=== PATIENT | male | born 1960 | race Caucasian/White ===

== ENCOUNTER → 2016-12-12 | Outpatient (CLI) | payer OTHER ==
[~2016-12-12] MED LIST: ATOR10TA82 PO; CBD PO; TURM1CAP2 PO
[2016-12-12 09:41] LABS: BASO % 0.7 %; BASO ABS # 0.03 K/uL (0-0.2); COMPLETE YES; EOS % 3.5 %; HEMATOCRIT 45.8 % (42-52); IG% 0.2 %; LYMPH ABS # 1.56 K/uL (1.2-3.4); MEAN CELL VOLUME 86.6 fL (80-100); MEAN CORPUSCULAR HEMOGLOBIN 30.6 pg (25-34); MEAN CORPUSCULAR HGB CONC 35.4 g/dl (32-36); MEAN PLATELET VOLUME 9.7 fL (7.4-10.4); MONO % 9.6 %; PLATELET COUNT 199 K/uL (130-400); RED BLOOD COUNT 5.29 M/uL (4.7-6.1); WHITE BLOOD COUNT 4.59 K/uL (4.8-10.8)
[2016-12-12 09:51] LABS: URINE APPEARANCE CLEAR (CLEAR); URINE BILIRUBIN NEG (NEG); URINE COLOR YELLOW; URINE EPITHELIAL CELL AUTO 0-5 /lpf (0-5); URINE NITRITE NEG (NEG); URINE SPECIFIC GRAVITY 1.019 (1.000-1.030); UROBILINOGEN NEG (NEG); ZZUR CULT IF INDIC CLEAN CATCH NO
[2016-12-12 10:01] LABS: MANUAL MICROSCOPIC REQUIRED? NO; REVIEW REQ? NO
[2016-12-12 10:43] LABS: BLOOD UREA NITROGEN 15 mg/dl (7-18); BUN/CREATININE RATIO 11.3 (10-20); CALCIUM 8.4 mg/dl (8.5-10.1); CARBON DIOXIDE 25 mmol/L (21-32); CHLORIDE 109 mmol/L (98-107); CHOLESTEROL 122 mg/dl (0-200); GLUCOSE 86 mg/dl (70-99); SODIUM 142 mmol/L (136-145)
[2016-12-12 10:48] LABS: CHOLESTEROL/HDL RATIO 2.7; HDL CHOLESTEROL 45 mg/dl; LDL CHOLESTEROL CALCULATED 64 mg/dl; PROSTATE SPECIFIC ANTIGEN 0.933 ng/ml (0.000-4.000); TRIGLYCERIDES 66 mg/dl (0-150); VERY LOW DENSITY LIPOPROT CALC 13 mg/dl
== END | disposition home or self-care (01) ==
LOC: C.LAB 07:17
PROVIDERS: ATTEND Internal Medicine
DX: Z12.5 Encounter for screening for malignant neoplasm of prostate (principal); R89.9 Unspecified abnormal finding in specimens from other organs, systems and tissues; E78.5 Hyperlipidemia, unspecified; Z13.6 Encounter for screening for cardiovascular disorders

== ENCOUNTER 2017-01-10 08:01 | Emergency (ER) | payer OTHER ==
[~2017-01-10] VITALS: Ht 177.8 cm; Wt 111.1 kg
[2017-01-10 08:04] VITALS: TEMP 36.7; Ht 177.8 cm; Wt 111.1 kg
[2017-01-10] MEDS ORDERED: ATOR10TA82 PO (08:39)
--- NOTE | 2017-01-10 08:59 | DIAGNOSTIC IMAGING REPORT ---
RIGHT KNEE 3 VIEWS CLINICAL HISTORY: Acute on chronic right knee pain. FINDINGS: AP, crosstable lateral, and sunrise views of the right knee are compared to study dated 10/30/2013. The skeletal structures are well mineralized. No fracture is seen. There is mild to moderate tricompartmental degenerative joint space narrowing which is greatest at the patellofemoral articulation. There are large patellar enthesophytes as well as large marginal osteophytes. There is degenerative beaking of the tibial spine. A calcified fabella is incidentally noted. There is a moderate joint effusion. Prepatellar soft tissue swelling is noted. IMPRESSION: 1. Joint effusion and soft tissue edema. No fracture is seen. 2. Degenerative change as above. Electronically signed by: Marco Antonio Ramos M.D. 01/10/2017 8:58 AM Dictated Date/Time: 01/10/2017 8:56 AM
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
[2017-01-10 09:32] VITALS: BP 132/68; PULSE 82; O2SAT 98
[2017-01-17] MEDS ORDERED: TURM1CAP2 PO (13:20)
[2017-01-17] MEDS ORDERED: CBD PO (13:20)
== END 2017-01-10 09:34 | disposition home or self-care (01) ==
LOC: C.EDB 08:02 → C.EDA 09:34
DX: S89.91XA Unspecified injury of right lower leg, initial encounter (principal); X50.1XXA Overexertion from prolonged static or awkward postures, initial encounter; Y92.312 Tennis court as the place of occurrence of the external cause; Y93.73 Activity, racquet and hand sports; Z79.899 Other long term (current) drug therapy

== ENCOUNTER → 2017-01-27 | Day surgery (SDC) | payer OTHER ==
[2017-01-17 13:20] VITALS: BMI 34.0
[~2017-01-27] VITALS: Ht 177.8 cm; Wt 109.1 kg
[~2017-01-27] MED LIST changes: +PROPOFOL IV EMULSION 10 MG/ML 20 ML VIAL IV ONE; +SODIUM CHLORIDE 0.9% 500ML 500 ML IV ONE
[2017-01-27 09:52] VITALS: Ht 177.8 cm; Wt 109.1 kg
--- NOTE | 2017-01-27 10:03 | Endo History and Physical ---
History & Physical Date of Service: Jan 27, 2017. Chief Complaint: screening Referring Physician: Dr. Pendleton History of Present Illness 56 yo CM who presents for screening colonoscopy. Past Surgical History Hx Cardiac Surgery: No Hx Internal Defibrillator: No Hx Pacemaker: No Hx Abdominal Surgery: No Hx of Implantable Prosthesis: No Hx Post-Op Nausea and Vomiting: No Hx Cancer Surgery: No Hx Thoracic Surgery: No Hx Orthopedic: Yes (RT MENISCUS REPAIR, LT MENSISCUS, RT RCR) Hx Urinary Tract Surgery: No Family History None Social History Smoking Status: Never Smoker Hx Substance Use: No Hx Alcohol Use: No Allergies Coded Allergies: Ketorolac Tromethamine (Unverified Allergy, Unknown, STOMACH PAINS, 01/27/17 ) Current Medications Reported Home Medications Medications Dose Route/Sig Max Daily Dose Days Date Category [Cbd] 1 Tab PO BID 01/17/17 Reported Turmeric (Turmeric (Curcuma Longa)) 450 Mg Cap 1 Tab PO NOON 01/17/17 Reported Lipitor (Atorvastatin Calcium) 10 Mg Tab 1 Tab PO HS 01/10/17 Reported Vital Signs Weight (Kilograms): 109.09 Height (Feet): 5 Height (Inches): 10 Date Time Temp Pulse Resp B/P (MAP) Pulse Ox O2 Delivery O2 Flow Rate FiO2 01/27/17 09:58 36.7 62 20 126/76 (93) 99 Room Air Physical Exam General Appearance: WD/WN, no apparent distress Respiratory/Chest: Auscultation: breath sounds normal Cardiovascular: Heart Auscultation: RRR Abdomen: Bowel Sounds: normal Inspection & Palpation: soft, non-distended, no tenderness, guarding & rebound Assessment and Plan Assessment: 56 yo CM who presents for screening colonoscopy. Plan: Proceed with colonoscopy.
--- NOTE | 2017-01-27 10:38 | Discharge Instructions ---
Endoscopy Patient Instructions Date / Procedure(s) Performed Jan 27, 2017. Colonoscopy Allergy Information Coded Allergies: Ketorolac Tromethamine (Unverified Allergy, Unknown, STOMACH PAINS, 01/27/17 ) Discharge Date / Findings Jan 27, 2017. Prominent IC valve s/p biopsies Ascending colon polyp Diverticulosis Internal hemorrhoids Provider Instructions Activity Restrictions - No exercising or heavy lifting for 24 hours. - Do not drink alcohol the day of the procedure. - Do not drive a car or operate machinery until the day after the procedure. - Do not make any important decisions or sign important papers in 24 hours after the procedure. Following Day: - Return to full activity which may include returning to work/school. Diet Start your diet with liquids and light foods (jello, soup, juice, toast). Then eat your usual diet if not nauseated. Treatment For Common After Affects For mild abdominal pain, bloating, or excessive gas: - Rest - Eat lightly - Lie on right side Follow-Up Information Follow-up with Dr. Pendleton as scheduled Anesthesia Information What You Should Know You have had a procedure that required some medicine to reduce anxiety and discomfort. This treatment is called moderate sedation. After receiving the treatment, you may be sleepy, but you will be able to breathe on your own. The effects of the treatment may last for several hours. Follow these instructions along with Activity/Diet recommendations noted above: * Do NOT do anything where dizziness or clumsiness would be dangerous. * Rest quietly at home today, then you can be up and about tomorrow. * Have a responsible person stay with you the rest of today. * You may have had an I.V. today. If so, you may take the dressing off later today. Recommendations Call your doctor if: * Trouble breathing * Continuous vomiting for more than 24 hours * Temperature above 101 degrees * Severe abdominal pain or bloating * Pain not relieved by pain medicine ordered * There is increased drainage or redness from any incision * A large amount of rectal bleeding greater than 2-3 tablespoons. (If you had a polyp/s removed or have hemorrhoids, a small amount of blood - from the rectum is to be expected.) * You have any unanswered questions or concerns. IN THE EVENT OF A SERIOUS EMERGENCY, GO TO THE NEAREST EMERGENCY ROOM Your discharge instructions were prepared by provider Migue Stewart. Patient Instructions Signature Page Luis Atkins Patient (or Guardian) Signature/Date: I have read and understand the instructions given to me by my caregivers. Caregiver/RN/Doctor Signature/Date: The above-named patient and/or guardian has received patient instructions on this date. + Original Patient Signature Page (only) stays with chart. Please make copy for patient.
--- NOTE | 2017-01-27 10:47 | GI REPORT ---
Procedure Date: 01/27/2017 10:11 AM Procedure: Colonoscopy Indications: Screening for colorectal malignant neoplasm Medicines: Monitored Anesthesia Care Complications: No immediate complications. Estimated Blood Loss: Estimated blood loss: none. Procedure: Pre-Anesthesia Assessment: - Prior to the procedure, a History and Physical was performed, and patient medications and allergies were reviewed. The patient's tolerance of previous anesthesia was also reviewed. The risks and benefits of the procedure and the sedation options and risks were discussed with the patient. All questions were answered, and informed consent was obtained. Prior Anticoagulants: The patient has taken no previous anticoagulant or antiplatelet agents. ASA Grade Assessment: II - A patient with mild systemic disease. After reviewing the risks and benefits, the patient was deemed in satisfactory condition to undergo the procedure. After I obtained informed consent, the scope was passed under direct vision. Throughout the procedure, the patient's blood pressure, pulse, and oxygen saturations were monitored continuously. The Scope was introduced through the anus and advanced to the terminal ileum. The colonoscopy was performed without difficulty. The patient tolerated the procedure well. The quality of the bowel preparation was good. The terminal ileum, ileocecal valve, appendiceal orifice, and rectum were photographed. Findings: Localized mild inflammation characterized by congestion (edema) was found at the ileocecal valve. Biopsies were taken with a cold forceps for histology. A 4 mm polyp was found in the ascending colon. The polyp was sessile. The polyp was removed with a cold snare. Resection and retrieval were complete. Multiple small-mouthed diverticula were found in the sigmoid colon. Non-bleeding internal hemorrhoids were found during retroflexion. The hemorrhoids were small. Impression: - Localized mild inflammation was found at the ileocecal valve. Biopsied. - One 4 mm polyp in the ascending colon, removed with a cold snare. Resected and retrieved. - Diverticulosis in the sigmoid colon. - Non-bleeding internal hemorrhoids. Recommendation: - Resume previous diet. - Continue present medications. - Repeat colonoscopy for surveillance based on pathology results. - Return to primary care physician as previously scheduled. Migue Stewart DO 01/27/2017 10:47:00 AM This report has been signed electronically. Note Initiated On: 01/27/2017 10:11 AM I attest to the content of the Intraoperative Record and orders documented therein, exceptions below
[2017-01-27 10:59] VITALS: BP 131/80; PULSE 70; O2SAT 97
--- NOTE | 2017-01-27 11:21 | Anesthesiology Progress Note ---
Anesthesia Post Op Note Date & Time Jan 27, 2017 at 11:21 Vital Signs Pain Intensity: 0 Vital Signs Past 12 Hours Date Time Temp Pulse Resp B/P (MAP) Pulse Ox O2 Delivery O2 Flow Rate FiO2 01/27/17 10:59 70 20 131/80 (97) 97 Room Air 01/27/17 10:45 69 20 129/70 (89) 97 Room Air 01/27/17 10:34 66 20 110/75 (87) 95 Room Air 01/27/17 09:58 36.7 62 20 126/76 (93) 99 Room Air Notes Mental Status: alert / awake / arousable, participated in evaluation Pt Amnestic to Procedure: Yes Nausea / Vomiting: adequately controlled Pain: adequately controlled Airway Patency, RR, SpO2: stable & adequate BP & HR: stable & adequate Hydration State: stable & adequate Anesthetic Complications: no major complications apparent
== END | disposition home or self-care (01) ==
LOC: C.GI 09:37
PROVIDERS: ATTEND Internal Medicine
DX: Z12.11 Encounter for screening for malignant neoplasm of colon (principal); D12.2 Benign neoplasm of ascending colon; K57.30 Diverticulosis of large intestine without perforation or abscess without bleeding; K64.8 Other hemorrhoids

== ENCOUNTER → 2017-08-03 | Outpatient (CLI) | payer OTHER ==
[~2017-08-03] MED LIST changes: -PROPOFOL IV EMULSION 10 MG/ML 20 ML VIAL IV ONE; -SODIUM CHLORIDE 0.9% 500ML 500 ML IV ONE
--- NOTE | 2017-08-03 18:15 | DIAGNOSTIC IMAGING REPORT ---
C-SPINE ROUTINE 4 OR 5 VIEWS HISTORY: 57 years-old Male M54.2 Neck pain acute neck pain without reported trauma COMPARISON: None available TECHNIQUE: 5 views of the cervical spine FINDINGS: The seventh vertebral segment is partially obscured by soft tissue. No acute fracture or subluxation identified. Moderate intervertebral disc space narrowing at C5-C6. Mild multilevel endplate spurring and facet arthrosis. Degenerative changes cause mild right-sided bony foraminal narrowing at C3-C4, C4-C5 and C5-C6. No significant bony foraminal narrowing seen on the left. Lung apices appear clear. No prevertebral soft tissue swelling. IMPRESSION: 1. No acute fracture or subluxation. 2. Degenerative changes as above include moderate intervertebral disc space narrowing at C5-C6. The above report was generated using voice recognition software. It may contain grammatical, syntax or spelling errors. Electronically signed by: Ace Monroy M.D. 08/03/2017 6:14 PM Dictated Date/Time: 08/03/2017 6:12 PM
--- NOTE | 2017-08-03 18:19 | DIAGNOSTIC IMAGING REPORT ---
LUMBAR SPINE 5 VIEWS HISTORY: M54.5 Low back painM54.2 Neck pain COMPARISON: None. FINDINGS: Minimal levoscoliosis which may be positional. The sacrum appears intact. Mild to moderate facet degenerative changes within the lower lumbar spine. No subluxation. Mild disc space narrowing at L3-L4 and L4-L5. Moderate to space narrowing at L5-S1. Mild superior endplate compression at L2 centrally. This is likely old. No acute fractures identified within the lumbar spine. IMPRESSION: 1. No acute fractures or subluxation within the lumbar spine. 2. Mild superior endplate central compression at L2 which is likely old. 3. Mild to moderate degenerative changes as described above. Electronically signed by: Rob Barroso M.D. 08/03/2017 6:17 PM Dictated Date/Time: 08/03/2017 6:15 PM
== END | disposition home or self-care (01) ==
LOC: C.RAD 17:13
PROVIDERS: ATTEND Internal Medicine
DX: M54.5 Low back pain (principal); M54.2 Cervicalgia

== ENCOUNTER 2024-07-23 05:05 | Observation (INO) ==
--- NOTE | 2024-06-14 16:01 | PAT Medication Instructions ---
Medication Instructions Date of Service June 14, 2024 Home Medications Medication Instructions Recorded cyclobenzaprine 10 mg tablet 10 mg PO TID PRN muscle spasm #60 05/03/23 tabs gabapentin 100 mg capsule 100 - 300 mg (1 - 3 x 100 mg) PO 03/26/24 TID PRN pain #90 caps atorvastatin 10 mg tablet 10 mg PO HS #90 tabs 05/06/24 multivitamin with minerals-folic acid 200 mcg chewable tablet (Multivitamin Gummies) 2 tab PO QAM mushroom supplement 2 tab PO DAILY cyclobenzaprine 10 mg tablet 10 mg PO TID PRN magnesium glycinate 100 mg (as glycinate) tablet 100 mg PO DAILY gabapentin 100 mg capsule 100 - 300 mg (1 - 3 x 100 mg) PO TID PRN atorvastatin 10 mg tablet 10 mg PO HS Creatine Supplement 2.5 g PO DAILY apixaban 5 mg tablet (Eliquis) 5 mg PO BID ASK your prescriber and surgeon apixaban 5 mg tablet (Eliquis) 5 mg PO BID(in order for spinal or epidural anesthesia, Eliquis needs to be stopped 72 hours/3 days before surgery. Please check if okay with doctor that prescribes this to you) STOP taking 2 weeks before surgery (or as soon as possible if surgery is within 2 weeks) mushroom supplement 2 tab PO DAILY Creatine Supplement 2.5 g PO DAILY DO NOT take the morning of surgery multivitamin with minerals-folic acid 200 mcg chewable tablet (Multivitamin Gummies) 2 tab PO QAM magnesium glycinate 100 mg (as glycinate) tablet 100 mg PO DAILY Take morning of surgery With a small sip of water, OTHERWISE NOTHING TO EAT OR DRINK AFTER MIDNIGHT: cyclobenzaprine 10 mg tablet 10 mg PO TID PRN(if needed) gabapentin 100 mg capsule 100 - 300 mg (1 - 3 x 100 mg) PO TID PRN(if needed) Take evening before surgery cyclobenzaprine 10 mg tablet 10 mg PO TID PRN(if needed) gabapentin 100 mg capsule 100 - 300 mg (1 - 3 x 100 mg) PO TID PRN(if needed) atorvastatin 10 mg tablet 10 mg PO HS Other Notes If you have any questions please call us at [phone] or [phone] or [phone] or [phone]
--- NOTE | 2024-06-24 10:18 | Anesthesiology Consultation ---
Date of Service June 24, 2024 Assessment & Plan (1) Encounter for pre-operative examination: Plan - Outpatient joint assessment: Patient is currently scheduled for inpatient pathway. If re-evaluated and patient/surgeon requests outpatient pathway, patient is not advised candidate for outpatient joint program from anesthesia standpoint. Chart Review Chart Review: Acceptable Risk for Surgery and Patient seen in Pre Admission Testing Teaching & Discussion Pre-Anesthesia Teaching/Discussion Notes: Instructed NPO after midnight before surgery, except medications with 15 cc of water. Medication instructions provided according to the PAT guidelines. History Surgery Operation Date: 07/23/24 10:40 Proposed Procedures p Left Total Hip Arthroplasty - Francis Goins MD Height/Weight Height: 5 ft 10 in Weight: 114.4 kg Allergies Allergy/AdvReac Type Severity Reaction Status Date / Time ketorolac AdvReac Intermediate Stomach Verified 06/14/24 07:28 Pains Medications Home Medications Medication Instructions Recorded Confirmed Last Taken multivitamin with minerals-folic 2 tab PO QAM 06/02/22 06/14/24 06/07/22 acid 200 mcg chewable tablet (Multivitamin Gummies) mushroom supplement 2 tab PO DAILY 11/29/22 06/14/24 Unknown cyclobenzaprine 10 mg tablet 10 mg PO TID PRN muscle spasm #60 05/03/23 06/14/24 Unknown tabs magnesium glycinate 100 mg (as 100 mg PO DAILY 08/10/23 06/14/24 Unknown glycinate) tablet gabapentin 100 mg capsule 100 - 300 mg (1 - 3 x 100 mg) PO 03/26/24 06/14/24 Unknown TID PRN pain #90 caps atorvastatin 10 mg tablet 10 mg PO HS #90 tabs 05/06/24 06/14/24 Unknown Creatine Supplement 2.5 g PO DAILY 06/14/24 06/14/24 Unknown apixaban 5 mg tablet (Eliquis) 5 mg PO BID 06/14/24 06/14/24 Unknown Past Medical History Medical History Anticoagulant long-term use Eliquis Diverticular disease found on colonoscopy - denies history of diverticulitis Factor V Leiden Dr Zaragoza/ Clinic Herniated intervertebral disc multiple lumbar History of DVT (deep vein thrombosis) LLE 2 year ago; dx Factor V; Eliquis Hyperlipidemia Lumbar back pain Osteoarthritis Superficial thrombosis of right lower extremity hx - on eliquis Patient denies h/o stroke, seizures, heart attack, heart failure, DM, HTN, or blood transfusions. Exercise / Class Metabolic Activity II 4-5 Yardwork/Stairs/Walk up hill (denies chest discomfort or shortness of breath with one flight of stairs) Past Family History Family History Father Heart disease Myocardial infarction Coronary heart disease Mother Arthritis Dementia Hypertension Macular degeneration Obesity Other No family history of adverse response to anesthesia Denies family history of Ovarian cancer Prostate cancer Breast cancer Colorectal cancer Past Surgical History Surgical History History of arthroscopy of left knee meniscus repair History of arthroscopy of right knee meniscus repair History of carpal tunnel surgery & Ulnar nerve - Right History of colonoscopy (2020) History of repair of rotator cuff Right History of wisdom tooth extraction Past Anesthesia History No Hx of Anesthesia Complications and No Family Hx of Anesthesia Complications History of PONV No Hx of PONV and No Hx of Motion Sickness Social History Smoking Status: Never smoker Do You Dip or Chew Tobacco: No Hx Alcohol Use: No Hx Substance Use: No substance use type: does not use Review of Systems Snoring, denies witnessed apneas. Patient denies chest pain, shortness of breath, dyspnea on exertion, reflux, fever, chills, cough, wheezing, or palpitations. Physical Exam Vital Signs Vitals BP 121/80 P 70 TEMP 97.7 SP02 97% on RA RESP 18 Physical Patient resting comfortably in chair in no acute distress, alert and oriented, responding appropriately throughout visit Full cervical extension range of motion without pain TMD 3.5 finger breadths Mallampati Score 2 Dentition: front upper caps, denies broken or loose teeth, crowns, implants or bridges Lungs: normal respiratory effort. Good air movement, clear throughout to auscultation, no adventitious breath sounds Cardiac: regular rate and rhythm, no murmurs noted Carotid arteries: negative bruit bilat Lab Results Anesthesia Preop Results Results Anesthesia Widget: WBC 5.42 K/ul (4.8-10.8) 06/24/24 Hgb 15.8 g/dl (14.0-18.0) 06/24/24 Hct 44.6 % (42.0-52.0) 06/24/24 Plt 216 K/uL (130-400) 06/24/24 Na 139 mmol/L (136-145) 06/24/24 K 4.2 mmol/L (3.5-5.1) 06/24/24 Cl 107 mmol/L (98-107) 06/24/24 CO2 24 mmol/L (21-32) 06/24/24 BUN 19 mg/dl (6-23) 06/24/24 Creat 1.15 mg/dl (0.6-1.4) 06/24/24 Glucose Level 100 mg/dl (70-99(Fasting)) H 06/24/24 PT 10.9 Seconds (9.0-12.0) 06/24/24 PTT 29 Seconds (21-31) 06/24/24 INR 1.0 (0.9-1.1) 06/24/24 Blood Type B Positive 06/24/24 Antibody Screen NEGATIVE 06/24/24 Testing Electrocardiogram Date: 06/24/24 Sinus rhythm with 1st degree AV block, rate 63 bpm Left anterior fascicular block Chest X-Ray Date: 06/24/24 No acute cardiopulmonary findings.
--- NOTE | 2024-07-15 20:00 | History & Physical Report ---
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 At tempora response to injection. This hip. Seems to be bothering and limiting his activities and ability to maintain an active lifestyle. He would like to have his hip fixed. Plan: We are going to take him to the operating room and do a left total hip replacement. The risks Mente this procedure were explained to the patient and include but not limited to a DVT, PE, , infection, neurovascular injury, leg length inequality, fracture, excetra. The patient understands and desires to proceed. He will hold his anticoagulation 3 days preop and we will start him in 24 hours postop and a prophylactic dose for a day or 2. This certainly does put him at increased risk for thrombosis but we will do the best we can to avoid that and manage that. He is planning on stay in the hospital overnight. He is open to be discharged to home postoperative day 1. He does live in [facility]. (2) Bilateral primary osteoarthritis of knee: (3) Hyperlipidemia: (4) History of DVT (deep vein thrombosis): (5) Factor V Leiden: History of Present Illness Chief Complaint: . Left hip and leg pain. Primary Care Provider: Miguel Pendleton MD . The patient is a 64-year-old gentleman who I been following for years for some knee problems. These has a history of bilateral knee arthroscopy done by Dr. Acuña in the past. We have been treating him conservatively over the years. 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 Over the past year or 2 weeks developed increased pain discomfort in his left hip groin and thigh area. He did have an injection intra-articularly by Dr. Hernandez which gave him about a month of relief. Pains come back. Got groin and thigh pain. Occasionally has trouble sleeping. He would like to have his hip fixed. 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 Allergies Allergy/AdvReac Type Severity Reaction Status Date / Time ketorolac AdvReac Intermediate Stomach Verified 06/14/24 07:28 Pains Home Medications Medication Instructions Recorded Confirmed Type multivitamin with minerals-folic 2 tab PO QAM 06/02/22 06/14/24 History acid 200 mcg chewable tablet (Multivitamin Gummies) mushroom supplement 2 tab PO DAILY 11/29/22 06/14/24 History cyclobenzaprine 10 mg tablet 10 mg PO TID PRN muscle spasm #60 05/03/23 06/14/24 Rx tabs magnesium glycinate 100 mg (as 100 mg PO DAILY 08/10/23 06/14/24 History glycinate) tablet gabapentin 100 mg capsule 100 - 300 mg (1 - 3 x 100 mg) PO 03/26/24 06/14/24 Rx TID PRN pain #90 caps atorvastatin 10 mg tablet 10 mg PO HS #90 tabs 05/06/24 06/14/24 Rx Creatine Supplement 2.5 g PO DAILY 06/14/24 06/14/24 History apixaban 5 mg tablet (Eliquis) 5 mg PO BID 06/14/24 06/14/24 History Past Med/Surg History Problem List Arthritis of left hip Achilles tendonosis Chronic anticoagulation Gross hematuria 12/28/22 Superficial thrombosis of left lower extremity 07/06/22 Encounter for pre-operative examination Cubital tunnel syndrome on right Carpal tunnel syndrome of right wrist Lumbar disc disease Lumbar compression fracture L2, L3, L4 DDD (degenerative disc disease), cervical Right hand paresthesia 05/06/21 Cervical pain Bilateral primary osteoarthritis of knee DVT (deep venous thrombosis) Left soleus 06/2022 Right calf pain 04/06/20 Varicose veins of right lower extremity Tubular adenoma of colon (Acute) Plantar fasciitis (Acute) Low back pain (Acute) Leukopenia (Acute) 01/09/19 Internal hemorrhoids (Acute) Hyperlipidemia (Chronic) Diverticulosis (Acute) Medical History Hyperlipidemia Anticoagulant long-term use Eliquis Diverticular disease found on colonoscopy - denies history of diverticulitis Lumbar back pain Superficial thrombosis of right lower extremity hx - on eliquis Osteoarthritis Herniated intervertebral disc multiple lumbar History of DVT (deep vein thrombosis) LLE 2 year ago; dx Factor V; Eliquis Factor V Leiden Dr Zaragoza/ Clinic Surgical History History of carpal tunnel surgery & Ulnar nerve - Right History of arthroscopy of left knee meniscus repair History of arthroscopy of right knee meniscus repair History of wisdom tooth extraction History of colonoscopy (2020) History of repair of rotator cuff Right Family History Father Heart disease Myocardial infarction Coronary heart disease Mother Arthritis Dementia Hypertension Macular degeneration Obesity Other No family history of adverse response to anesthesia Denies family history of Ovarian cancer Prostate cancer Breast cancer Colorectal cancer Social History Smoking Status: Never smoker Second Hand Exposure: No; Do You Dip or Chew Tobacco: No; Hx Alcohol Use: No Hx Substance Use: No Preferred Language: [place] Leonean Communication Ability: Effective Visual Impairment: Limited Hearing Ability: Normal 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 Physical Exam . Physical examination was a pleasant middle-age male. He looks to be in pretty good health. Examination of the left hip and leg reveal patient walks with slightly antalgic gait. He does limp on the left side. Leg lengths appear pretty equal. He is got stiffness and pain with hip motion. He can internally rotate to neutral. Negative straight leg raise. Constitutional WD/WN, vitals as above Neck trachea midline, no thyromegaly Respiratory normal respiratory effort, lungs clear to auscultation Cardiovascular RRR, no murmur, no edema Gastrointestinal (Abdomen) normal bowel sounds, soft, nontender, no hepatosplenomegaly Results & Data Results & Data Laboratory Results . Diagnostic Findings . X-rays of the left hip were reviewed. It shows fairly advanced left hip arthritis. He is got near complete loss of the superior joint space. He is gotten a little bit of flattening of the femoral head with cam type impingement. He is got cystic changes on both sides of the joint in the weightbearing part of the hip. PG Care Time/CCT Total # of Minutes Spent Total Time Spent with Patient: Total time spent is greater than 50% in coordination of care (as documented) at patient's floor/unit and/or counseling patient: Coding Level of Care Code None Diagnoses Arthritis of left hip M16.12 Bilateral primary osteoarthritis of knee M17.0 Hyperlipidemia E78.5 History of DVT (deep vein thrombosis) Z86.718 Factor V Leiden D68.51
[2024-07-23] MEDS: METOCLOPRAMIDE HCL 10 MG TABLET PO SCH (05:58)
[2024-07-23] MEDS: FAMOTIDINE 20 MG TAB PO SCH (05:58)
[2024-07-23] MEDS: CeleBREX 200 MG CAP PO SCH (05:58)
[2024-07-23] MEDS: ACETAMINOPHEN 500 MG TAB PO SCH ×2 (05:58→14:05)
[2024-07-23] MEDS: LACTATED RINGER'S 1,000 ML IV SCH (05:59)
[2024-07-23] MEDS ORDERED: LR 60ML/HR IV SCH (06:00)
[2024-07-23] MEDS ORDERED: LR 500ML BOLUS, THEN 15ML/HR IV SCH (06:00)
[2024-07-23] MEDS ORDERED: PROPOFOL IV EMULSION 10 MG/ML 20 ML VIAL IV ONE (06:09)
[2024-07-23] MEDS ORDERED: LIDOCAINE 2% 2 ML VIAL/AMP(20MG/ML) INFIL ONE (06:11)
[2024-07-23] MEDS ORDERED: fentaNYL citrate PF 100 MCG/2 ML VIAL ONE (06:15)
[2024-07-23] MEDS ORDERED: MIDAZOLAM HCL 1 MG/ML 2ML VIAL ONE ×2 (06:15)
[2024-07-23] MEDS ORDERED: ROPIVACAINE 0.5% 5 MG/ML 30 ML VIAL ONE (06:21)
[2024-07-23] MEDS ORDERED: NALBUPHINE HCL INJ 10 MG/ML AMP IV PRN (06:40)
[2024-07-23] MEDS ORDERED: NALOXONE HCL 0.4 MG/1 ML VIAL/CARP IV PRN ×2 (06:40→10:28)
[2024-07-23] MEDS ORDERED: ePHEDrine sulfate 50 MG/ML AMP IV PRN (06:40)
[2024-07-23] MEDS ORDERED: MoRPHine SULFATE 2 MG/ML CARP IV PRN (06:40)
[2024-07-23] MEDS ORDERED: NALOXONE HCL 0.08 MG in SYRINGE 1.8 ML IV PRN (06:40)
[2024-07-23] MEDS ORDERED: NALOXONE HCL 1 MG in SODIUM CHLORIDE 0.9% 1,000 ML IV PRN (06:40)
[2024-07-23] MEDS ORDERED: HYDROmorphone INJ 0.5 MG/0.5 ML SYR IV PRN ×2 (06:40→10:28)
[2024-07-23] MEDS ORDERED: MoRPHine SULFATE PF 1 MG/ML 10 ML AMP/VIAL ONE (06:41)
[2024-07-23] MEDS: TRANEXAMIC ACID 1,000 MG **IV Pre-op IV SCH (06:43)
[2024-07-23] MEDS ORDERED: NO NARCOTICS OR SEDATIVES SCH (06:45)
[2024-07-23] MEDS ORDERED: DC INTRASPINAL MORPHINE SCH (06:45)
--- NOTE | 2024-07-23 06:50 | History & Physical Bridge Note ---
Date of Service July 23, 2024 History & Physical Bridge Note I have examined the patient, reviewed the History & Physical and in the interval since the performance of the History & Physical I have noted the following changes of clinical significance: no changes noted
[2024-07-23] MEDS: ceFAZolin 2000MG 2,000 MG/15 ML SYR IV SCH ×2 (06:58→14:05)
[2024-07-23] MEDS ORDERED: PHENYLEPHRINE 100MCG/ML 5ML SYR ONE (07:13)
[2024-07-23] MEDS ORDERED: ePHEDrine sulfate 50 MG/5 ML SYR ONE (07:29)
[2024-07-23] MEDS: BUPIVACAINE/EPINEPHRINE 0.5% MPF 1:200,000 30 ML VIAL ONE (07:36)
[2024-07-23] MEDS ORDERED: PHENYLEPHRINE HCL 10 MG/ML VIAL ONE (08:11)
--- NOTE | 2024-07-23 08:35 | Operative Report ---
PG Post Operative Report Pre & Post Diagnosis Operation Date: 07/23/24 07:00 Pre-Op Diagnosis: Left Hip Degenerative Joint Disease Post-Op Diagnosis: Left Hip Degenerative Joint Disease I identified the patient and participated in the time-out.: Yes Procedure Operation Date: 07/23/24 07:00 Actual Procedures p Left Total Hip Arthroplasty, Uncemented(Left) - Francis Goins MD Surgeon Francis Goins MD Visitor Information Assistant Shaheen Ch PA-C Estimated Blood Loss 200 Findings Consistent with Post-Op Diagnosis Specimens Left femoral head sent for pathology. Anesthesia Type Spinal MAC Complications none Disposition Accompanied Patient To Recovery: No Indications The patient is a 64-year-old very active gentleman whose had a several year history of increasing left hip pain discomfort to gotten significant worse over the past year. He has been to potential conservative treatment which became less successful over time. X-rays show progressive hip arthritis. He elected proceed with total hip arthroplasty. Description of Procedure Operative implants consist of: 1 Biomet G7 size 54 mm acetabular shell. 2. 6.5 cancellous acetabular screws 1 of 35 mm length 125 mm length. 3. [place] hole shop blacksmith. 4. Highly cross-linked polyethylene liner with 54 mm outer diameter and 36 mm inner diameter. 5. DePuy Corail size 13 KLA femoral stem. 6. +5/36 mm ceramic articular ball. The patient was taken the op room, identified, placed on the operating table in the supine position. All conductors were appropriately padded. IV antibiotics fibra anesthesia team. A spinal anesthetic had been implemented in the holding area. Patient was then placed in the right lateral decubitus position. Axillary roll was placed. Distal Birkett position was used for positioning. The left hip and leg were then prepped and draped in usual sterile fashion. Posterior lateral approach to the left hip was then performed to a curvilinear incision centered over the greater trochanteric. Sharp dissection was got through subcutaneous tissue dental of the IT band gluteal fascia. The IT band gluteal fascia was sized longitudinally in line with skin incision. The underlying greater bursa was excised. The piriformis and external rotators along with the posterior hip joint capsule then released in the posterior aspect the hip as a single layer. Great care was taken throughout the procedure protect the sciatic nerve at all times. The hip was then internally rotated and dislocated. A femoral neck osteotomy cut was made with Final Cut about 10 mm above the lesser trochanter. Femoral head was removed and sent for pathology. The femur was retracted anteriorly. Attention was then drawn to the acetabulum. The acetabular labrum was excised. The pulmonary fat was excised. Sequential reaming the acetabular was then performed again with a size 45 and progressing up to a 53. I reamed a little bit with a 54 reamer and then placed a 54 mm Biomet cup in about 40 degrees lateral opening and 20 degrees of anteversion. It was fixed with two 6.5 cancellous screws. Trial liner was placed. Attention drawn the femur. The proximal femur was entered with a [employer] cutter followed by canal finder. I then broached beginning with a size 8 and progressing up to a 13. We got excellent fitted to 13. I did not think I could fit the 14 down safely. Calcar reamer was used smoothed off the calcar. Then trialed the hip and the +5 articular ball provided for hip stability in extension and external rotation and flexion to 90 degrees internal Tatian over 50 degrees. The leg lengths seemed equal. We elected to place his implants. All trial implants were removed. An apex hole shop blacksmith was placed. Highly cross-linked polyethylene liner was placed. A size 13 KLA femoral stem was impacted in position. +5/36 mm ceramic articular ball was placed. Hip was located and once again found to be stable. Attention drawn toward closing. The wounds irrigated coconuts pulsatile lavage solution. I did inject locally with 60 cc of half percent Marcaine with epinephrine. The patient did receive 1 g tranexamic acid before the surgery started. In the the posterior capsule was then repaired through drill holes in the posterior trochanter with #2 Tycron suture. The IT band gluteal fascia then closed in 1 PDS suture in running fashion. Subcutaneous tissue was then closed with 2 layers the deep layer and 1 Vicryl suture and subcutaneous tissue with 2-0 Dexon suture in a buried interrupted fashion. Skin was closed skin margret. Leg was then cleaned and dried. A Prevena VAC dressing was applied. The patient then transferred to the recovery room in stable condition. The patient tolerated the procedure well and there were no complications. Shaheen Ch, my physician marketing communications assistant, was present for the entire procedure. His assistance was essential and required for appropriate patient positioning, prepping and draping, surgical exposure, performing the technical details of the operation, placement the implants, closure of the wound, and placement of the sterile bandage. I attest to the content of the Intraoperative Record and any orders documented therein. Any exceptions are noted below.
--- NOTE | 2024-07-23 09:10 | XRay Report ---
XR hip 1V LT w pelvis HISTORY: 64 years-old Male IN PACU - Post Surgical COMPARISON: March 28, 2024 TECHNIQUE: AP view of the pelvis with 2 views of the left hip FINDINGS: Mild to moderate osteoarthritis of the right hip. Unremarkable appearance of the left hip arthroplast y with lateral skin margret, surgical drain and expected postoperative soft tissue swelling with deep tissue air. IMPRESSION: Satisfactory alignment of the left hip arthroplasty. ACT 112: Negative or not required by law. The above report was generated using voice recognition software. It may contain grammatical, syntax o r spelling errors. Electronically signed by: Benedict Monroy M.D. 07/23/2024 9:09 AM
--- NOTE | 2024-07-23 09:29 | Anesthesiology Progress Note ---
Date of Service July 23, 2024 Anesthesia Post Procedure Vital Signs Vital Signs: Temp Pulse Resp BP Pulse Ox O2 Del Method O2 Flow Rate 07/23/24 09:15 82 19 104/64 97 Room Air 07/23/24 09:05 82 13 98/61 L 94 Room Air 07/23/24 08:55 36.4 C L 83 14 98/63 L 98 Room Air 07/23/24 08:45 85 14 109/82 99 Room Air 07/23/24 08:35 84 18 104/59 L 97 Oxymask 3 07/23/24 08:29 36 C L 87 23 108/63 100 Oxymask 6 07/23/24 05:34 37.0 C 77 18 129/76 96 Room Air Transfer of Care Handoff Completed per policy Notes Mental Status: alert / awake / arousable and participated in evaluation Patient Amnestic to Procedure: Yes Nausea / Vomiting: adequately controlled Pain: adequately controlled Airway Patency, RR, SpO2: stable & adequate BP & HR: stable & adequate Hydration State: stable & adequate Neuraxial Anesthesia: was administered and sensory block is resolving Anesthetic Complications: no major complications apparent and Pt Satisfied with anesthetic care
[2024-07-23] MEDS ORDERED: bisacodyL 10 MG SUPP PR PRN (10:28)
[2024-07-23] MEDS ORDERED: MUSHROOM SUPPLEMENT PO SCH (10:28)
[2024-07-23] MEDS ORDERED: MAGNESIUM HYDROXIDE SUSP 30 ML UDC PO PRN (10:28)
[2024-07-23] MEDS ORDERED: [UNRECOGNIZED DRUG - OTHER] PO SCH (10:28)
[2024-07-23] MEDS ORDERED: SENNA 8.6 MG TAB PO SCH (10:28)
[2024-07-23] MEDS ORDERED: METOCLOPRAMIDE HCL INJ 5 MG/ML 2 ML VIAL IV PRN (10:28)
[2024-07-23] MEDS ORDERED: ALUMINUM/MAGNESIUM SUSP 30 ML UDC PO PRN (10:28)
[2024-07-23] MEDS ORDERED: CYCLOBENZAPRINE HCL 10 MG TAB PO PRN (10:28)
[2024-07-23] MEDS ORDERED: ONDANSETRON INJ 2 MG/ML 2 ML VIAL IV PRN (10:28)
[2024-07-23] MEDS ORDERED: NON-FORMULARY MEDICATION (Multivit With Min-Folic Acid [Multivitamin Gummies] 200 mcg Tabl PO SCH (10:28)
[2024-07-23] MEDS: MoRPHine SULFATE PF 1 MG/ML 10 ML AMP/VIAL INT SPINAL ONE (11:49)
[2024-07-23] MEDS: DOCUSATE SODIUM 100 MG CAP PO SCH (14:04)
[2024-07-23] MEDS: TAMSULOSIN HCL 0.4 MG CAP PO SCH (14:04)
[2024-07-23] MEDS: MULTIVITAMIN TAB PO SCH (14:04)
[2024-07-23] MEDS: MAGNESIUM OXIDE 400 MG TAB PO SCH (14:04)
[2024-07-23] MEDS: KETOROLAC TROMETHAMINE 15 MG/ML VIAL IV SCH (14:04)
[2024-07-23] MEDS: TRANEXAMIC ACID / 0.7% NACL 1,000 MG/100 ML BAG IV SCH (15:57)
[2024-07-23] MEDS: ONDANSETRON INJ 2 MG/ML 2 ML VIAL IV PRN (17:01)
[2024-07-23] MEDS: ASCORBIC ACID 500 MG TAB PO SCH (17:33)
[2024-07-23] MEDS: SENNA 8.6 MG TAB PO SCH (20:54)
[2024-07-23] MEDS: ATORVASTATIN 10 MG TAB PO SCH (22:28)
[2024-07-23] MEDS: diphenhydrAMINE 50 MG/ML VIAL IV PRN (22:59)
[2024-07-24] MEDS ORDERED: traMADol HCL 50 MG TABLET PO PRN (00:40)
[2024-07-24] MEDS ORDERED: GABAPENTIN 100 MG CAP PO PRN (00:40)
[2024-07-24 05:09] VITALS: RESP 16
--- NOTE | 2024-07-24 06:58 | Orthopedic Progress Note ---
Date of Service July 24, 2024 Assessment & Plan (1) S/P total left hip arthroplasty: POD 1 from left jennifer. Pain controlled. dvt prophylaxis: teds, scd's and eliquis PT/OT, wbat, hip precautions Continue hip precautions d/c planning: hoping to go home today. Instructed to remove prevena vac in 7 days follow up with Dr Goins in 2-3 weeks will discuss with Dr Goins Subjective . 64 year old patient POD 1 from left jennifer. Doing well this morning. Not really having much pain. No other complaints. Review of Systems All systems reviewed & are unremarkable except as noted in HPI & below. Physical Exam . alert and oriented. NAD, VSS, labs pending Left leg: Prevena vac dressing intact and functioning appropriately. Able to DF/PF. NVI. Leg well aligned. Results & Data Results & Data Laboratory Results . Diagnostic Findings . PG Care Time/CCT Total # of Minutes Spent Total Time Spent with Patient: Total time spent is greater than 50% in coordination of care (as documented) at patient's floor/unit and/or counseling patient: Coding Level of Care Code 08940 Post Operative Follow-Up Diagnoses S/P total left hip arthroplasty Z96.642
[2024-07-24 07:18] VITALS: BP 119/71; PULSE 82; TEMP 97.7; O2SAT 96
[2024-07-24 07:34] LABS: Anion Gap 5 (3-11); BUN Creatinine Ratio 16.7 (10-20); Blood Urea Nitrogen 21 mg/dl (6-23); Calcium 8.9 mg/dl (8.6-10.3); Carbon Dioxide 28 mmol/L (21-32); Chloride 104 mmol/L (98-107); Creatinine Clr Calc Pharmacy 72.4 ml/min; Glucose 111 mg/dl (70-99(Fasting)); Sodium 137 mmol/L (136-145)
[2024-07-24 07:44] LABS: Basophils # (auto) 0.03 K/uL (0.00-0.20); Basophils % (auto) 0.4 %; Eosinophils % (auto) 1.2 %; Hematocrit (blood only) 43.7 % (42.0-52.0); Hemoglobin 14.5 g/dl (14.0-18.0); Immature Granulocytes # (auto) 0.02 K/uL (0.01-0.20); Immature Granulocytes % (auto) 0.2 %; Lymphocytes # (auto) 0.92 K/uL (1.20-3.40); Lymphocytes % (auto) 10.9 %; Mean Corpuscular Hemoglobin 29.7 pg (25.0-34.0); Mean Corpuscular Hgb Conc 33.2 g/dL (32.0-36.0); Mean Corpuscular Volume 89.5 fL (80.0-100.0); Mean Platelet Volume 9.7 fL (9.4-12.4); Monocytes # (auto) 0.82 K/uL (0.11-0.59); Monocytes % (auto) 9.7 %; Neutrophils # (auto) 6.56 K/uL (1.40-6.50); Neutrophils % (auto) 77.6 %; Platelet Count 156 K/uL (130-400); RDW Coefficient of Variation 12.7 % (11.5-14.5); RDW Standard Deviation 41.7 fL (36.4-46.3); Red Blood Count 4.88 M/uL (4.70-6.10); White Blood Count 8.45 K/ul (4.8-10.8)
[2024-07-24] MEDS: APIXABAN 2.5 MG TAB PO SCH (08:33)
[2024-07-24] MEDS: dexAMETHasone 10 MG in SYRINGE 0 ML IV SCH (08:33)
--- NOTE | 2024-07-26 06:35 | Discharge Summary ---
Date of Service July 26, 2024 Admission HPI (Per Admitting) . The patient is a 64-year-old gentleman who I been following for years for some knee problems. These has a history of bilateral knee arthroscopy done by Dr. Acuña in the past. We have been treating him conservatively over the years. 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 Over the past year or 2 weeks developed increased pain discomfort in his left hip groin and thigh area. He did have an injection intra-articularly by Dr. Hernandez which gave him about a month of relief. Pains come back. Got groin and thigh pain. Occasionally has trouble sleeping. He would like to have his hip fixed. 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 Admission Exam (Per Admitting) . Physical examination was a pleasant middle-age male. He looks to be in pretty good health. Examination of the left hip and leg reveal patient walks with slightly antalgic gait. He does limp on the left side. Leg lengths appear pretty equal. He is got stiffness and pain with hip motion. He can internally rotate to neutral. Negative straight leg raise. Principal Diagnosis Same as "Discharge Diagnosis" noted below under Discharge Instructions. Discharge Exam . alert and oriented. NAD, VSS, labs pending Left leg: Prevena vac dressing intact and functioning appropriately. Able to DF/PF. NVI. Leg well aligned. Discharge Data Procedures Performed Operation Date: 07/23/24 07:00 Actual Procedures p Left Total Hip Arthroplasty, Uncemented(Left) - Francis Goins MD Hospital Course (1) S/P total left hip arthroplasty: This is a 64 year old patient admitted on 07/23/24 and underwent total hip arthroplasty. He tolerated the procedure well and there were no complications. Transferred to the PACU post op and later to the orthopedic floor for further care. He was given ancef for antibiotic prophylaxis. He was also given stoc kings, SCDs, and eliquis for DVT prophylaxis. Hemoglobin, hematocrit, and vital signs were monitored during his hospital stay and remained stable. Did not require any blood transfusions. There were no complications during his hospital stay. By post op day #1 the patient was tolerating a regular diet, pain was reasonably controlled with oral pain medicine, and he was participating in physical the [facility]. On post op day #1 the patient was discharged home and set up with home health care. He was given printed discharge instructions including prescriptions for extra strength tylenol, zofran, senokot, flomax, and tramadol. Continue eliquis. Continue hip precautions. Continue physical therapy, weight bearing as tolerated. Continue stockings. Follow up approximately 2 weeks post op or sooner if there are problems or concerns. Discharge Plan Discharge Items Patient Disposition: Home - Home Health Services Reason For Visit: Left Hip Arthritis Discharge Diagnosis: Left Hip Replacement Activity: Per Instructions section Activity Comment: Follow/Obey hip precautions at all times. Weightbearing: Full weightbearing Weightbearing Comment: Weightbear as tolerated obeying hip precautions at all times. Non-emergency contact: Surgeon Call non-emergency contact if: you have any medication questions Follow-up/Referrals: Miguel Pendleton MD [Primary Care Provider] - Diet: Regular Addtl Attending Provider Instructions: ACTIVITY RECOMMENDATIONS: Diet: * You may resume previous diet. Physical Therapy: * Aggressive physical therapy is not usually needed. You will learn to take care of yourself safely and walk. * Follow the "Hip Precautions Instructions." * In some cases, the social work nurse at the hospital will arrange to have a therapist come to your house for the first couple of weeks to help you learn these skills. * You need to practice on your own or with the help of a family member as needed. * When you learn these skills, most of the therapy can be done on your own. Home Exercise: * You were shown a series of exercises in the hospital. Do these exercises three to four times each day including the exercises you were shown in physical therapy. Walking: * Get up and walk several times each day. For the first four weeks, try not to stand or walk for more than one hour at a time. If you do stand or walk for more than one hour, you will not hurt anything, but your leg will likely swell. * As you feel comfortable, you may change from the walker or crutches to a cane and then to independent walking. MEDICATIONS: New Medicine: * You will likely be taking one or more of these medicines: 1. Tramadol - Take, as directed, when you need it, every six hours to control your pain. 2. Eliquis - Thins your blood to lessen the chance of forming a blood clot. * The most common side effects of pain medicine and iron are nausea and constipation. If nausea or constipation is too much of a problem or if you have any questions about your new medicines or doses, call [facility] at . We will try to help you manage these issues. "VERY IMPORTANT TO READ AND REVIEW" Pain: * The immediate post-operative period after hip replacement surgery is often quite painful. * You are given a prescription for pain medicine. You should take it, as directed, when you need it, especially before physical therapy and before going to bed. Pain that interferes with sleep is very common and can last several months. * You will likely need pain medicine for the first two to four weeks. It will not stop all of the pain. The pain will lessen and as you feel better, you may change to milder pain medicine such as Tylenol. * The most common side effects of pain medicine are nausea and constipation, so don't take more than you need. SPECIAL CARE INSTRUCTIONS: TEDs/Elastic Stockings: * The white elastic stockings help limit swelling and prevent blood clots from forming in your legs. The more you wear them, the more they work. * Wear them for six weeks. Incision Site Care: * Remove dressing postoperative day 2 and then shower. Keep direct shower pressure off the incision site. * After showering, cover margret with dry gauze and change daily or more frequently if the dressing is getting saturated with drainage. * May completely stop using bandage if wound is dry and no drainage * Margret are removed between 2 and 3 weeks post-op. If your follow-up appointment is made before 2 weeks, please have your appointment re- scheduled. It is too early to remove the margret. Prevention of Infection: * Take antibiotics one hour before any dental cleaning, dental work, urological procedure, gastrointestinal procedure or any invasive surgery in order to prevent your new joint from getting infected. * You may get the antibiotics from the doctor performing the procedure or you may call our office at before and we will call in a prescription to the pharmacy of your choice. Things to Watch For: * Drainage from the incision site that occurs more than one week after your surgery. * Severely increased leg pain or swelling. * Increased redness at the incision site. * Fever above 102 degrees Fahrenheit. * Unusual chest pain or shortness of breath. * Unusual pain or burning with urination. Call [facility] at with any of the above problems or if you have any questions about your medicines or recovery. FOLLOW UP VISIT: Make an appointment to see your doctor for approximately two weeks after surgery for a progress check and staple removal by calling the office at . Pending Studies at Discharge: No Stand-Alone Forms: My [facility], Pain - Opioid Pain Management, Smoking Cessation Medications and DC Order Prescriptions: Continued cyclobenzaprine 10 mg tablet 10 mg PO TID PRN (Reason: muscle spasm) Qty: 60 0RF gabapentin 100 mg capsule 100 - 300 mg PO TID PRN (Reason: pain) Qty: 90 0RF Rx Instructions: 100-300mg PO three times a day PRN; atorvastatin 10 mg tablet 10 mg PO HS Qty: 90 3RF tramadol 50 mg tablet 50 - 100 mg PO Q8H PRN (Reason: pain) Qty: 40 0RF Rx Instructions: Take as needed for pain ondansetron 4 mg tablet,disintegrating 4 mg PO Q8 PRN (Reason: nausea) Qty: 20 1RF Rx Instructions: Take as needed for nausea sennosides [Senokot] 8.6 mg tablet 8.6 mg PO BID 14 Days Qty: 28 0RF Rx Instructions: Take two times a day to prevent/treat constipation acetaminophen [Tylenol Extra Strength] 500 mg tablet 1,000 mg PO TID 30 Days Qty: 180 0RF Rx Instructions: Take 3 times per day to lessen pain. 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 Rx Instructions: Begin night BEFORE surgery to prevent urinary retention magnesium glycinate 100 mg tablet 100 mg PO DAILY mushroom supplement 2 tab PO DAILY multivit with min-folic acid [Multivitamin Gummies] 200 mcg Tablet,Chewable 2 tab PO QAM Creatine Supplement 2.5 g PO DAILY Eliquis 5 mg tablet 5 mg PO BID Patient Comments: "Dr Goins wants me to stop 3 days prior to surgery 07/23/24" Krames/Other Patient Handouts: DVT Post Op Prevention, Hip Precautions Admission Data Admit Date/Time: 07/23/24 08:31 Attending Provider: Francis Goins Admit Provider: Francis Goins Primary Care Provider: Miguel Pendleton Other Interventions: Discharge Summary Assessment (RN) Last Done: 07/24/24 09:21
== END 2024-07-24 11:15 | disposition home health service (06) ==
LOC: ASU 05:05 → 3E 05:05